=== PATIENT | female | born 1995 | race Two or more races ===

== ENCOUNTER 2024-04-30 17:34 | Emergency (ER) | payer OTHER ==
[~2024-04-30] VITALS: Ht 154.9 cm; Wt 72.6 kg
[2024-04-30] MEDS ORDERED: IBUPROFEN 600 MG TABLET ONE (18:37)
[2024-04-30] MEDS: IBUPROFEN 600 MG TABLET PO ONE (18:38)
[2024-04-30 18:50] LABS: APPEARANCE,URINE Slightly Cloudy (CLEAR); BILIRUBIN,URINE Negative (NEGATIVE); BLOOD, URINE Large Ery/uL (NEGATIVE); COLOR,URINE AMBER (YELLOW); KETONES,URINE Negative (NEGATIVE); LEUKOCYTE ESTERASE ,URINE Small (NEGATIVE); NITRITE, URINE Negative (NEGATIVE); PH,URINE 6.5 (5.0-8.0); PREGNANCY TEST URINE QUAL NEGATIVE (NEGATIVE); PROTEIN,URINE 100 mg/dl (NEGATIVE); UGLUCOSE Negative (NEGATIVE); UROBILINOGEN,URINE 0.2 EU/dL (0.2)
[2024-04-30 19:01] LABS: ADD URINE CULTURE YES; BACTERIA,URINE 1+ /HPF (None Seen); RBC,URINE 51-80 /HPF (0-2); WBC,URINE 21-50 /HPF (0-3)
[2024-04-30] MEDS ORDERED: IBUP-1490 PO (19:18)
[2024-04-30] MEDS ORDERED: NITR100C PO (19:18)
[2024-04-30 19:24] VITALS: BP 112/80; TEMP 98.2; O2SAT 98
== END 2024-04-30 19:24 | disposition home or self-care (01) ==
LOC: ER 17:44
DX: N39.0 Urinary tract infection, site not specified (principal)
CPT/HCPCS: 81001; 84703-TC; 87086-TC; 87186-TC